=== PATIENT | female | born 2005 | race Caucasian/White ===

== ENCOUNTER 2025-08-06 10:31 | Inpatient (IN) | payer MEDICAID ==
[~2025-08-06] VITALS: Ht 162.6 cm; Wt 86.4 kg
[2025-08-06] MEDS ORDERED: QUET100T PO (11:05)
[2025-08-06] MEDS ORDERED: GABA-1181 PO (11:05)
[2025-08-06] MEDS ORDERED: QUET200T PO (11:05)
[2025-08-06] MEDS ORDERED: SERT-162 PO (11:05)
[2025-08-06 11:51] LABS: PLATELET COUNT (AUTO) 335 K/uL (150-450); RED BLOOD CELL COUNT(AUTO) 5.21 MIL/uL (4.00-5.20); RED CELL DISTRIBUTION WIDTH 14.1 % (11.5-14.5); WHITE BLOOD COUNT (AUTO) 7.1 K/uL (4.5-11.0)
[2025-08-06 11:58] LABS: CALCIUM, TOTAL 9.3 mg/dL (8.8-10.5); CREATININE 0.49 mg/dL (0.60-1.30); GLOMERULAR FILTR. RATE CALC > 60 mL/min (>60); GLUCOSE,RANDOM 130 mg/dL (70-110); SODIUM SERUM 139 mmol/L (136-145); UREA NITROGEN, BLOOD 11 mg/dL (7-18)
[2025-08-06 12:21] LABS: APPEARANCE,URINE CLEAR (CLEAR); GLUCOSE, URINE (UA) >=1000 mg/dL (NEGATIVE); LEUKOCYTE ESTERASE ,URINE SMALL (NEGATIVE); NITRATE,URINE NEGATIVE (NEGATIVE); OCCULT BLOOD,URINE NEGATIVE (NEGATIVE); PH,URINE DRUG SCREEN 5.5 (5.0-8.0); SPECIFIC GRAVITIY, URINE 1.031 (1.003-1.030)
[2025-08-06 12:29] LABS: AMPHET/METH SCREEN,URINE NEGATIVE (NEGATIVE); BARBITURATE SCREEN, URINE NEGATIVE (NEGATIVE); CANNABINOID SCREEN,URINE NEGATIVE (NEGATIVE); COCAINE SCREEN,URINE NEGATIVE (NEGATIVE); METHADONE SCREEN, URINE NEGATIVE (NEGATIVE)
[2025-08-06 12:30] LABS: ALCOHOL, URINE DRUG SCREEN NEGATIVE (NEGATIVE)
[2025-08-06] MEDS: BACITRACIN 0.9 GM PACKET OINTMENT TP ONE (12:36)
[2025-08-06] MEDS: GABAPENTIN 300 MG CAPSULE PO ONE (12:36)
[2025-08-06] MEDS: SERTRALINE HCL 100 MG TABLET PO ONE (12:36)
[2025-08-06 12:47] LABS: SQUAMOUS EPITHELIAL CELL,UR Many /LPF (None Seen)
[2025-08-06 12:56] LABS: COVID AG,FIA SOURCE NASAL SWAB
[2025-08-06 13:18] LABS: SARS-COV2 (COVID) ANTIGEN,FIA Negative (Negative)
[2025-08-06] MEDS: CEPHALEXIN MONOHYDRATE 500 MG CAPSULE PO ONE (13:35)
[2025-08-06 14:32] VITALS: O2SAT 96
[2025-08-06 16:40] VITALS: BP 124/90; PULSE 121; RESP 18; TEMP 98.1; O2SAT 97
[2025-08-06] MEDS: INFLUENZA VIRUS VACCINE TVS (6MO+) 2025-26/PF 45 MCG/0.5 ML SYRINGE IM. ONE (17:30)
[2025-08-06 20:23] VITALS: RESP 18
[2025-08-07 08:37] VITALS: BP 99/74; PULSE 101; RESP 17; TEMP 98.1; O2SAT 95
[2025-08-07] MEDS ORDERED: BENZOCAINE/MENTHOL [CEPACOL] LOZENGE PO PRN (08:45)
[2025-08-07] MEDS ORDERED: ALBUTEROL SULFATE HFA 90 MCG/PUFF 8 GM INHALER IH PRN (08:45)
[2025-08-07] MEDS ORDERED: LOPERAMIDE HCL 2 MG CAPSULE PO PRN (08:45)
[2025-08-07] MEDS ORDERED: ONDANSETRON 4 MG TABLET PO PRN (08:45)
[2025-08-07] MEDS ORDERED: MAG HYDROX/ALUMINUM HYD/SIMETH ES 30 ML SUSPENSION UDCUP PO PRN (08:45)
[2025-08-07] MEDS ORDERED: OMEPRAZOLE 20 MG CAPSULE PO PRN (08:45)
[2025-08-07] MEDS ORDERED: DOCUSATE SODIUM 100 MG CAPSULE PO PRN (08:45)
[2025-08-07] MEDS ORDERED: PETROLATUM,WHITE 28 GM JELLY TP PRN (08:45)
[2025-08-07] MEDS ORDERED: BACITRACIN 28 GM OINTMENT TP PRN (08:45)
[2025-08-07] MEDS: GABAPENTIN 300 MG CAPSULE PO SCH (09:04)
[2025-08-07] MEDS: CEPHALEXIN MONOHYDRATE 500 MG CAPSULE PO SCH (09:27)
[2025-08-07 09:39] LABS: CHOL/HDL RATIO 4.6 (3.9-5.7); LDL CHOL (CALC.) 124.0 mg/dL (0-130)
[2025-08-07 20:28] VITALS: BP 116/69; PULSE 99; RESP 18; TEMP 98.2; O2SAT 98
[2025-08-07] MEDS: ZOLPIDEM TARTRATE 10 MG TABLET PO PRN (21:40)
[2025-08-08] MEDS ORDERED: GLUCAGON,HUMAN RECOMBINANT 1 MG VIAL IM PRN (09:00)
[2025-08-08] MEDS: ETHYL ALCOHOL 62% ANTISEPTIC NASAL SANITIZER 0.6 ML AMPUL NASAL SCH (09:11)
[2025-08-08] MEDS: SERTRALINE HCL 50 MG TABLET PO SCH (09:11)
[2025-08-08 09:58] VITALS: RESP 18
[2025-08-08] MEDS: IBUPROFEN 600 MG TABLET PO PRN (09:59)
[2025-08-08 10:58] VITALS: RESP 18
[2025-08-08 11:27] VITALS: RESP 16
[2025-08-08] MEDS: INSULIN LISPRO 100 UNITS/ML SQ PRN (11:42)
[2025-08-08 11:55] LABS: GLUCOMETER DEV NAME(LOC) BV2S.; GLUCOSE,POINT OF CARE 277 MG/DL (70-110)
[2025-08-08 16:51] LABS: GLUCOMETER DEV NAME(LOC) BV2S.; GLUCOSE,POINT OF CARE 201 MG/DL (70-110)
[2025-08-08 20:00] VITALS: BP 123/82; PULSE 68; RESP 17; TEMP 98.1
[2025-08-08 21:25] LABS: GLUCOMETER DEV NAME(LOC) BV2S.; GLUCOSE,POINT OF CARE 221 MG/DL (70-110)
[2025-08-08] MEDS: CHLORHEXIDINE GLUCONATE 2% TOWELETTE [2'S/6'S] TP SCH (21:33)
[2025-08-09 06:41] LABS: GLUCOMETER DEV NAME(LOC) BV2S.; GLUCOSE,POINT OF CARE 170 MG/DL (70-110)
[2025-08-09 08:29] VITALS: BP 119/71; PULSE 81; RESP 18; TEMP 97.6; O2SAT 99
[2025-08-09 12:06] LABS: GLUCOMETER DEV NAME(LOC) BV2S.; GLUCOSE,POINT OF CARE 253 MG/DL (70-110)
[2025-08-09 17:11] LABS: GLUCOMETER DEV NAME(LOC) BV2S.; GLUCOSE,POINT OF CARE 255 MG/DL (70-110)
[2025-08-09] MEDS: ACETAMINOPHEN 325 MG TABLET PO PRN (18:08)
[2025-08-09 18:09] VITALS: RESP 18
[2025-08-09] MEDS: MAGNESIUM HYDROXIDE SUSPENSION 30 ML UDCUP PO PRN (19:13)
[2025-08-09 19:14] VITALS: RESP 18
[2025-08-09 20:30] LABS: GLUCOMETER DEV NAME(LOC) BV2S.; GLUCOSE,POINT OF CARE 148 MG/DL (70-110)
[2025-08-09 20:38] VITALS: BP 118/79; PULSE 68; RESP 18; TEMP 97.8; O2SAT 99
[2025-08-10 06:21] LABS: GLUCOMETER DEV NAME(LOC) BV2S.; GLUCOSE,POINT OF CARE 202 MG/DL (70-110)
[2025-08-10 08:41] VITALS: BP 107/70; PULSE 96; RESP 16; TEMP 98.1; O2SAT 96
[2025-08-10] MEDS: SERTRALINE HCL 50 MG TABLET PO ONE (10:06)
[2025-08-10 11:50] LABS: GLUCOMETER DEV NAME(LOC) BV2S.; GLUCOSE,POINT OF CARE 216 MG/DL (70-110)
[2025-08-10 16:35] LABS: GLUCOMETER DEV NAME(LOC) BV2S.; GLUCOSE,POINT OF CARE 197 MG/DL (70-110)
[2025-08-10 16:55] VITALS: RESP 18
[2025-08-10] MEDS ORDERED: GABA-1181 PO (17:00)
[2025-08-10] MEDS ORDERED: QUET100T34 PO (17:00)
[2025-08-10] MEDS ORDERED: RISP-32 PO ×2 (17:00→18:37)
[2025-08-10] MEDS ORDERED: QUET200T30 PO (17:00)
[2025-08-10 20:25] LABS: GLUCOMETER DEV NAME(LOC) BV2S.; GLUCOSE,POINT OF CARE 160 MG/DL (70-110)
[2025-08-10 20:41] VITALS: BP 124/88; PULSE 86; RESP 18; TEMP 98.1; O2SAT 98
[2025-08-11 06:25] LABS: GLUCOMETER DEV NAME(LOC) BV2S.; GLUCOSE,POINT OF CARE 184 MG/DL (70-110)
[2025-08-11 08:22] VITALS: BP_SYST 139; PULSE 76; RESP 16; TEMP 98; O2SAT 98
[2025-08-11] MEDS ORDERED: CEPH-558 PO (09:21)
[2025-08-11] MEDS ORDERED: ETHY1MED2 NASAL (09:23)
[2025-08-11] MEDS ORDERED: METF-1211 PO (09:23)
[2025-08-11] MEDS ORDERED: CLON0.1T2 PO (09:23)
[2025-08-11 11:30] LABS: GLUCOMETER DEV NAME(LOC) BV2S.; GLUCOSE,POINT OF CARE 201 MG/DL (70-110)
[2025-08-11] MEDS ORDERED: LORazepam 2 MG/ML VIAL ONE (13:18)
[2025-08-11] MEDS: LORazepam 2 MG/ML VIAL IM ONE (13:38)
[2025-08-11 14:12] VITALS: BP 114/75; PULSE 110; RESP 17; TEMP 98.1; O2SAT 99
[2025-08-11 15:12] VITALS: RESP 17; O2SAT 99
[2025-08-11 17:05] LABS: GLUCOMETER DEV NAME(LOC) BV2S.; GLUCOSE,POINT OF CARE 180 MG/DL (70-110)
[2025-08-11 20:28] VITALS: BP 107/78; PULSE 108; RESP 18; TEMP 97.3; O2SAT 99
[2025-08-11 21:00] LABS: GLUCOMETER DEV NAME(LOC) BV2S.; GLUCOSE,POINT OF CARE 195 MG/DL (70-110)
[2025-08-11 22:30] VITALS: BP 115/68; PULSE 96; RESP 16; TEMP 98; O2SAT 98
[2025-08-12 06:20] LABS: GLUCOMETER DEV NAME(LOC) BV2S.; GLUCOSE,POINT OF CARE 182 MG/DL (70-110)
[2025-08-12] MEDS: GABAPENTIN 100 MG CAPSULE PO SCH (08:32)
[2025-08-12 08:42] VITALS: BP 110/78; PULSE 99; RESP 16; TEMP 99.5; O2SAT 98
[2025-08-12 11:55] LABS: GLUCOMETER DEV NAME(LOC) BV2S.; GLUCOSE,POINT OF CARE 203 MG/DL (70-110)
[2025-08-12 16:41] LABS: GLUCOMETER DEV NAME(LOC) BV2S.; GLUCOSE,POINT OF CARE 151 MG/DL (70-110)
[2025-08-12] MEDS ORDERED: LORazepam 2 MG/ML VIAL ONE (16:46)
[2025-08-12] MEDS: LORazepam 2 MG/ML VIAL IM ONE (17:15)
[2025-08-12 20:11] LABS: GLUCOMETER DEV NAME(LOC) BV2S.; GLUCOSE,POINT OF CARE 241 MG/DL (70-110)
[2025-08-12 20:34] VITALS: BP 113/78; PULSE 135; RESP 18; TEMP 97.9; O2SAT 97
[2025-08-13 06:05] LABS: GLUCOMETER DEV NAME(LOC) BV2S.; GLUCOSE,POINT OF CARE 175 MG/DL (70-110)
[2025-08-13] MEDS: DIVALPROEX SODIUM 500 MG ER TABLET PO SCH (08:45)
[2025-08-13 11:07] VITALS: BP 131/80; PULSE 74; RESP 18; TEMP 98.1; O2SAT 97
[2025-08-13 11:50] LABS: GLUCOMETER DEV NAME(LOC) BV2S.; GLUCOSE,POINT OF CARE 198 MG/DL (70-110)
[2025-08-13 17:00] LABS: GLUCOMETER DEV NAME(LOC) BV2S.; GLUCOSE,POINT OF CARE 243 MG/DL (70-110)
[2025-08-13] MEDS ORDERED: DIVA-153 PO (18:11)
[2025-08-13] MEDS ORDERED: CHLO50TA53 PO (18:11)
[2025-08-13] MEDS ORDERED: QUET100T34 PO (18:11)
[2025-08-13] MEDS ORDERED: CHLO100T36 PO (18:11)
[2025-08-13] MEDS ORDERED: QUET200T30 PO (18:11)
[2025-08-13 20:36] VITALS: BP 118/83; PULSE 102; RESP 18; TEMP 98.2; O2SAT 97
[2025-08-13 22:16] LABS: GLUCOMETER DEV NAME(LOC) BV2S.; GLUCOSE,POINT OF CARE 255 MG/DL (70-110)
[2025-08-14 07:41] LABS: GLUCOMETER DEV NAME(LOC) BV2S.; GLUCOSE,POINT OF CARE 199 MG/DL (70-110)
[2025-08-14 08:35] VITALS: RESP 18
[2025-08-14 12:05] LABS: GLUCOMETER DEV NAME(LOC) BV2S.; GLUCOSE,POINT OF CARE 263 MG/DL (70-110)
[2025-08-14 17:11] LABS: GLUCOMETER DEV NAME(LOC) BV2S.; GLUCOSE,POINT OF CARE 175 MG/DL (70-110)
[2025-08-14 20:35] LABS: GLUCOMETER DEV NAME(LOC) BV2S.; GLUCOSE,POINT OF CARE 187 MG/DL (70-110)
[2025-08-14 20:40] VITALS: RESP 17
[2025-08-15 06:46] LABS: GLUCOMETER DEV NAME(LOC) BV2S.; GLUCOSE,POINT OF CARE 186 MG/DL (70-110)
[2025-08-15 08:21] VITALS: BP 111/76; PULSE 61; RESP 18; TEMP 97.5; O2SAT 96
[2025-08-15 11:31] LABS: GLUCOMETER DEV NAME(LOC) BV2S.; GLUCOSE,POINT OF CARE 247 MG/DL (70-110)
== END 2025-08-15 12:04 | disposition home or self-care (01) | DRG 750 ==
LOC: EMS 10:34 → B2S 13:45
PROVIDERS: ADMIT Psychiatry & Neurology Psychiatry; ATTEND Psychiatry & Neurology Psychiatry
PROC: GZ56ZZZ Individual Psychotherapy, Supportive (ICD-10-PCS; principal; 2025-08-08)
DX: F31.5 Bipolar disorder, current episode depressed, severe, with psychotic features (principal); E66.9 Obesity, unspecified; Z68.32 Body mass index [BMI] 32.0-32.9, adult; Z20.822 Contact with and (suspected) exposure to COVID-19; F84.0 Autistic disorder; G47.00 Insomnia, unspecified; N39.0 Urinary tract infection, site not specified; R73.9 Hyperglycemia, unspecified; F41.9 Anxiety disorder, unspecified; K59.00 Constipation, unspecified; R62.50 Unspecified lack of expected normal physiological development in childhood; F60.3 Borderline personality disorder; F90.9 Attention-deficit hyperactivity disorder, unspecified type; Z56.0 Unemployment, unspecified
CPT/HCPCS: 70450; 80048; 80061; 80307; 81001; 82962; 83036; 84703; 85025; 87081; 87086; 99285; G0480; J1200; J1630; J2060; J3230